=== PATIENT | male | born 1955 | race Caucasian/White ===

== ENCOUNTER 2019-02-22 16:01 | Observation (INO) ==
[2019-02-22] MEDS ORDERED: Aspirin 81 MG TAB.CHEW PO STA (16:17)
[2019-02-22] MEDS ORDERED: GI Cocktail 40 ML EACH PO ONE (16:17)
[2019-02-22] MEDS ORDERED: Nitroglycerin 0.4 MG TAB.SUBL SL PRN (16:17)
[2019-02-22] MEDS ORDERED: Ondansetron 4 MG/2 ML VIAL IVP ONE (16:18)
[2019-02-22] MEDS ORDERED: Metoclopramide 10 MG/2 ML VIAL IVP ONE (16:19)
[2019-02-22 17:49] LABS: Basophils % 0.1 %; Eosinophils # 0.1 K/mcL (0.0-0.6); Eosinophils % 1.4 %; Hematocrit 38.8 % (37.5-50.1); Hemoglobin 13.4 g/dL (12.9-16.9); Immature Granulocytes % 0.4 % (0-4); Lymphocytes # 0.9 K/mcL (0.6-4.6); Lymphocytes % 11.7 %; Mean Corpuscular HGB Conc 34.5 g/dL (31.6-35.5); Mean Corpuscular Hemoglobin 31.2 pg (28.0-33.3); Mean Corpuscular Volume 90.2 fL (83.0-100.0); Mean Platelet Volume 9.9 fL (9.4-12.4); Monocytes # 0.5 K/mcL (0.0-1.3); Monocytes % 7.1 %; Neutrophils # 5.8 K/mcL (1.6-8.9); Platelet Count 212 K/mcL (140-400); Red Cell Distribution Width 12.7 % (11.5-14.5); Segmented Neutrophils % 79.3 %; White Blood Count 7.3 K/mcL (4.3-11.1)
[2019-02-22 18:00] LABS: Albumin 4.9 g/dL (3.5-5.7); Albumin/Globulin Ratio 1.9 (1.1-2.2); Bilirubin,Direct 0.1 mg/dL (0.0-0.2); Bilirubin,Indirect 0.3 mg/dL (0.0-1.0); Bilirubin,Total 0.4 mg/dL (0.3-1.0); Globulin 2.6 g/dL (2.4-3.5); Total Protein 7.5 g/dL (6.4-8.9)
[2019-02-22 18:02] LABS: Blood Urea Nitrogen 16 mg/dL (8-23); Calcium 10.4 mg/dL (8.6-10.3); Carbon Dioxide 29 mEq/L (23-29); Chloride 97 mEq/L (98-107); Glucose 116 mg/dL (70-105); Osmolality,Calculated 288 (280-300); Potassium 4.2 mEq/L (3.5-5.1); Sodium 138 mEq/L (136-145); Troponin I < 0.03 ng/mL (< 0.04)
[2019-02-22 18:12] LABS: BUN/Creatinine Ratio 14 (6-26); Platelet Estimate Normal (Normal); eGFR For African Americans > 60 (> 60); eGFR For Non-African Americans > 60 (> 60)
[2019-02-22] MEDS ORDERED: ChlorproMAZINE 25 MG/ML AMPUL IM ONE (18:37)
[2019-02-22] MEDS ORDERED: Naloxone 0.4 MG/ML INJ IVP PRN (20:33)
[2019-02-22] MEDS ORDERED: D5% in Water 1,000 ML IVC PRN (20:34)
[2019-02-22] MEDS ORDERED: Dextrose Gel 15 GM/37.5 ML TUBE PO PRN ×2 (20:34)
[2019-02-22] MEDS ORDERED: *HR* Dextrose 50 % in Water (Syg) 50 ML SYRINGE IVP PRN (20:34)
[2019-02-22] MEDS: Pantoprazole 40 MG VIAL IVP SCH (23:12)
[2019-02-22] MEDS: Sucralfate 1 GM TABLET PO SCH (23:12)
[2019-02-23 07:11] VITALS: BP 128/74
[2019-02-23] MEDS ORDERED: Insulin LISPRO 300 UNITS/3 ML VIAL SQ SCH (07:30)
[2019-02-23] MEDS ORDERED: Metoclopramide 10 MG/2 ML VIAL IVP ONE (08:26)
[2019-02-23] MEDS: Sucralfate 1 GM TABLET PO SCH (08:44)
[2019-02-23] MEDS: Pantoprazole 40 MG VIAL IVP SCH (08:44)
== END 2019-02-23 11:00 | disposition home or self-care (01) ==
LOC: EMEROOARM 16:01 → 3BNU 16:01 → SUATTDRO 21:47 → 3BNU 22:44
PROVIDERS: ADMIT Internal Medicine; ATTEND Internal Medicine